=== PATIENT | female | born 1965 | race Caucasian/White ===

== ENCOUNTER 2016-04-23 22:20 | Emergency (ER) | payer BC ==
[~2016-04-23] VITALS: Ht 167.6 cm; Wt 72.6 kg
[~2016-04-23 22:20] MED LIST: ASPI1TAB30 PO; CYCL10TA2 PO; HYDR-2666 PO; IBUP200C PO
[2016-04-23] MEDS ORDERED: IV NORMAL SALINE 1000ML BAG 1,000 ML IV SCH (23:00)
[2016-04-23 23:03] LABS: BASO # 0.1 x10^3/uL (0.0-0.2); BASO % 1 % (0-3); EOS % 2 % (0-3); HEMATOCRIT 42.4 % (36.0-47.0); HEMOGLOBIN 14.5 g/dL (12.0-15.5); LYMPH # 2.5 x10^3/uL (1.0-4.8); LYMPH % 25 % (24-48); MEAN CORPUSCULAR HEMOGLOBIN 30 pg (25-35); MEAN CORPUSCULAR HGB CONC 34 g/dL (31-37); MEAN CORPUSCULAR VOLUME 87 fL (79-100); MONO % 7 % (0-9); NEUT % 64 % (31-73); PLATELET COUNT 306 x10^3/uL (140-400); RED CELL DISTRIBUTION WIDTH 12.6 % (11.5-14.5); WHITE BLOOD COUNT 9.7 x10^3/uL (4.0-11.0)
[2016-04-23 23:07] LABS: PROTHROMBIN TIME PATIENT 12.6 SEC (11.7-14.0)
[2016-04-23 23:10] LABS: CREATININE 1.2 mg/dL (0.6-1.0); GFR 47.6; POTASSIUM 3.5 mmol/L (3.5-5.1)
[2016-04-23] MEDS ORDERED: POTASSIUM CHLORIDE 20 MEQ TABLET.ER. PO ONE (23:45)
--- NOTE | 2016-04-23 23:46 | PHYS DOC ---
Past Medical History Past Medical History: High Cholesterol, Hypertension Additional Past Medical Histor: HERNIATED DISC Past Surgical History: , Hysterectomy Additional Past Surgical Histo: "TUMMY TUCK", KNEE SX AND FOOT SX Alcohol Use: None Drug Use: None Adult General Chief Complaint Chief Complaint: CHEST PAIN HPI HPI Patient is a 50 year old female who presents with diffuse intermittent body cramps including left chest cramps since yesterday; also with fatigue, lightheadedness, and rhinorrhea. She also has nasal congestion. She notes changing her blood pressure medications 2 weeks ago and having lower blood pressure recently as well. She denies fever or chills, dyspnea, hemoptysis, leg swelling, palpitations, diaphoresis, orthopnea, exertional symptoms. Review of Systems Review of Systems Constitutional: Denies fever or chills [] Eyes: Denies change in visual acuity, redness, or eye pain [] HENT: Denies sore throat [] Respiratory: Denies shortness of breath [] Cardiovascular: No additional information not addressed in HPI [] GI: Denies abdominal pain, nausea, vomiting, bloody stools or diarrhea [] : Denies dysuria or hematuria [] Musculoskeletal: Denies back pain or joint pain [] Integument: Denies rash or skin lesions [] Neurologic: Denies headache, focal weakness or sensory changes [] Endocrine: Denies polyuria or polydipsia [] Current Medications Current Medications Current Medications Medications (Trade) Dose Ordered Sig/Ilda Start Time Stop Time Status Last Admin Dose Admin Potassium Chloride (Klor-Con) 40 meq 1X ONCE 04/23/16 23:45 04/23/16 23:46 DC 04/24/16 00:01 40 MEQ Sodium Chloride (Iv Sodium Chloride 0.9% 1000ml Bag) 1,000 ml @ 1,000 mls/hr Q1H 04/23/16 23:00 04/23/16 23:59 DC 04/23/16 23:08 1,000 MLS/HR Allergies Allergies Allergies Coded Allergies Type Severity Reaction Last Updated Verified Penicillins Allergy Intermediate hives 07/31/13 Yes aspirin Allergy Intermediate hives 07/31/13 Yes ibuprofen Allergy Intermediate Rash 08/27/13 Yes pamabrom Allergy Intermediate Rash 08/27/13 Yes Physical Exam Physical Exam Constitutional: Well developed, well nourished, no acute distress, non-toxic appearance. [] HENT: Normocephalic, atraumatic, bilateral external ears normal, oropharynx moist, no oral exudates, nose normal. [] Eyes: PERRLA, EOMI. [] Neck: Normal range of motion, supple. [] Cardiovascular:Heart rate regular rhythm, no murmur [] Lungs & Thorax: Bilateral breath sounds clear to auscultation [] Abdomen: Bowel sounds normal, soft, no tenderness. [] Skin: Warm, dry, no erythema, no rash. [] Back: Normal range of motion. [] Extremities: No tenderness, ROM intact, no edema, no palpable cord. [] Neurologic: Alert and oriented X 3, normal motor function, normal sensory function, no focal deficits noted. [] Psychologic: Affect normal, judgement normal, mood normal. [] Current Patient Data Vital Signs Vital Signs Date Time Temp Pulse Resp B/P Pulse Ox O2 Delivery O2 Flow Rate FiO2 04/24/16 00:01 80 16 108/60 94 Room Air 04/23/16 22:57 98.7 98.7 Lab Values Laboratory Tests Test 04/23/16 22:52 White Blood Count 9.7x10^3/uL (4.0-11.0) Red Blood Count 4.90x10^6/uL (3.50-5.40) Hemoglobin 14.5g/dL (12.0-15.5) Hematocrit 42.4% (36.0-47.0) Mean Corpuscular Volume 87fL (79-100) Mean Corpuscular Hemoglobin 30pg (25-35) Mean Corpuscular Hemoglobin Concent 34g/dL (31-37) Red Cell Distribution Width 12.6% (11.5-14.5) Platelet Count 306x10^3/uL (140-400) Neutrophils (%) (Auto) 64% (31-73) Lymphocytes (%) (Auto) 25% (24-48) Monocytes (%) (Auto) 7% (0-9) Eosinophils (%) (Auto) 2% (0-3) Basophils (%) (Auto) 1% (0-3) Neutrophils # (Auto) 6.2x10^3uL (1.8-7.7) Lymphocytes # (Auto) 2.5x10^3/uL (1.0-4.8) Monocytes # (Auto) 0.7x10^3/uL (0.0-1.1) Eosinophils # (Auto) 0.2x10^3/uL (0.0-0.7) Basophils # (Auto) 0.1x10^3/uL (0.0-0.2) Prothrombin Time 12.6SEC (11.7-14.0) Prothrombin Time INR 1.0 (0.8-1.1) Sodium Level 140mmol/L (136-145) Potassium Level 3.5mmol/L (3.5-5.1) Chloride Level 100mmol/L (98-107) Carbon Dioxide Level 29mmol/L (21-32) Anion Gap 11 (6-14) Blood Urea Nitrogen 27mg/dL (7-20) H Creatinine 1.2mg/dL (0.6-1.0) H Estimated GFR (Cockcroft-Gault) 47.6 Glucose Level 164mg/dL (70-99) H Calcium Level 10.0mg/dL (8.5-10.1) Troponin I Quantitative < 0.017ng/mL (0.000-0.055) AD-Lbv-X-Type Natriuretic Peptide < 5pg/mL (0-124) Laboratory Tests 04/23/16 22:52 Laboratory Tests 04/23/16 22:52 EKG EKG EKG as interpreted by me as normal sinus rhythm, rate 98, no ST-T changes, normal intervals, no ectopy Radiology/Procedures Radiology/Procedures Chest xray as interpreted by me with no acute cardiopulmonary disease process Course & Med Decision Making Course & Med Decision Making Pertinent Labs and Imaging studies reviewed. (See chart for details) I suspect she has a viral illness versus symptoms of well-controlled blood pressure as she states she usually runs very hypertensive (190s SBP) and is now well-controlled. Workup is unremarkable here. Potassium given for possible symptoms related to low normal potassium. Return precautions given. She understands and agrees with plan. Dragon Disclaimer Dragon Disclaimer This electronic medical record was generated, in whole or in part, using a voice recognition dictation system. Departure Departure Impression: Primary Impression: Lightheadedness Additional Impressions: Myalgia Chest pain Disposition: 01 HOME, SELF-CARE Condition: STABLE Referrals: MANOJ HALL MD (PCP) Patient Instructions: Muscle Cramps, Beoc-hb-Wagt Additional Instructions: Take Tylenol as needed for pain. Follow-up with your primary care doctor. Return for any concerns. Problem Qualifiers Additional Impressions: Chest pain Chest pain type: other chest pain Qualified Code: R07.89 - Other chest pain Anderson LIND MD Apr 23, 2016 23:46
[2016-04-24 00:01] VITALS: BP 108/60
--- NOTE | 2016-04-24 06:13 | EKG ---
[facility] [address] [place] [address] Test Date: 2016-04-23 Test Time: 22:34:52 Pat Name: DELONTE DINERO Department: Room: Gender: F Maintenance Apprentice: : 1965 Requested By: Anderson LIND Order Number: [id number] Reading MD: Jesus Nicole Measurements Intervals [place] Rate: 98 P: 34 HI: 152 QRS: 34 QRSD: 78 T: 37 QT: 366 QTc: 469 Interpretive Statements SINUS RHYTHM Electronically Signed On 04-25-2016 15:30:46 PRIMARY THERAPIST by Jesus Nicole
--- NOTE | 2016-04-24 07:14 | RAD ---
EXAM: Chest, 2 views.. HISTORY: Chest pain. COMPARISON: None. FINDINGS: Frontal and lateral views of the chest are obtained. There is no infiltrate, effusion or pneumothorax. The heart is normal in size. IMPRESSION: No acute pulmonary finding.
== END 2016-04-24 00:07 | disposition home or self-care (01) ==
LOC: ER 22:20
DX: R42 Dizziness and giddiness (principal); M79.1 Myalgia; R07.89 Other chest pain; E78.00 Pure hypercholesterolemia, unspecified; I10 Essential (primary) hypertension; Z88.0 Allergy status to penicillin; Z88.8 Allergy status to other drugs, medicaments and biological substances; Z88.6 Allergy status to analgesic agent
CPT/HCPCS: 36415; 71020; 80048; 83880; 84484; 85027; 85610; 93005; 96360; 99285; J7030

== ENCOUNTER 2016-06-15 22:01 | Emergency (ER) | payer BC ==
[~2016-06-15] VITALS: Ht 157.5 cm; Wt 72.6 kg
[2016-06-15 22:47] LABS: BASO # 0.1 x10^3/uL (0.0-0.2); BASO % 1 % (0-3); EOS % 2 % (0-3); HEMATOCRIT 35.8 % (36.0-47.0); HEMOGLOBIN 12.2 g/dL (12.0-15.5); LYMPH # 1.9 x10^3/uL (1.0-4.8); LYMPH % 17 % (24-48); MEAN CORPUSCULAR HEMOGLOBIN 30 pg (25-35); MEAN CORPUSCULAR HGB CONC 34 g/dL (31-37); MEAN CORPUSCULAR VOLUME 87 fL (79-100); MONO % 8 % (0-9); NEUT % 72 % (31-73); PLATELET COUNT 261 x10^3/uL (140-400); RED BLOOD COUNT 4.12 x10^6/uL (3.50-5.40); RED CELL DISTRIBUTION WIDTH 12.7 % (11.5-14.5); WHITE BLOOD COUNT 10.9 x10^3/uL (4.0-11.0)
[2016-06-15] MEDS ORDERED: IV NORMAL SALINE 1000ML BAG 1,000 ML IV ONE (23:00)
[2016-06-15] MEDS ORDERED: CYCLOBENZAPRINE 10 MG TABLET. PO ONE (23:00)
[2016-06-15 23:21] LABS: CALCIUM 9.3 mg/dL (8.5-10.1); GFR 58.7; POTASSIUM 3.4 mmol/L (3.5-5.1)
[2016-06-15 23:27] LABS: ALBUMIN 4.3 g/dL (3.4-5.0); ALBUMIN/GLOBULIN RATIO 1.2 (1.0-1.7); TOTAL BILIRUBIN 0.5 mg/dL (0.2-1.0); TOTAL PROTEIN 7.8 g/dL (6.4-8.2)
[2016-06-16 00:08] VITALS: BP 94/59
[2016-06-16] MEDS ORDERED: CYCL10TA2 PO (00:26)
--- NOTE | 2016-06-16 00:26 | PHYS DOC ---
Past Medical History Past Medical History: High Cholesterol, Hypertension Additional Past Medical Histor: HERNIATED DISC Past Surgical History: , Hysterectomy Additional Past Surgical Histo: "TUMMY TUCK", KNEE SX AND FOOT SX Additional Information: PT DENIES SMOKING CIGARETTES, BUT STATES SHE VAPES Alcohol Use: None Drug Use: None Adult General Chief Complaint Chief Complaint: LOWER EXT PAIN HPI HPI Patient is a 50 year old \\-year-old female who presents to the ER today secondary to muscle cramps. Patient was recently started on a new anti-hyper cholesterol medication. Patient reports that several weeks ago she was discontinued on her prior hyperlipidemic agent secondary to muscle cramps. She reports when she stopped taking that medication she significantly improved in the cramps resolved however over the last day or so she started exercising more cramps or lower extremities. Patient denies any other symptomatology at this time. Patient has any fevers shakes chills nausea vomiting diarrhea chest pain or shortness of breath. Patient's physical exam was unremarkable. Patient had no Homans sign. Patient capillary refill. Patient no evidence of vascular compromise. Patient's workup here was unremarkable. Labs were all within normal limits. I believe that her cramping is likely secondary to the antique hyperlipidemic agent that she is currently taking. I have suggested to the patient that she stopped taking until she speaks her family physician is C they can put her on a different class of medications. Review of Systems Review of Systems Constitutional: Denies fever or chills [] Eyes: Denies change in visual acuity, redness, or eye pain [] HENT: Denies nasal congestion or sore throat [] All other review systems are negative except as documented in the history of present illness portion. Current Medications Current Medications Current Medications Medications (Trade) Dose Ordered Sig/Ilda Start Time Stop Time Status Last Admin Dose Admin Cyclobenzaprine HCl 10 mg 10 mg 1X ONCE 06/15/16 23:00 06/15/16 23:01 DC 06/15/16 22:45 10 MG Sodium Chloride (Iv Sodium Chloride 0.9% 1000ml Bag) 1,000 ml @ 999 mls/hr 1X ONCE 06/15/16 23:00 06/16/16 00:00 DC 06/15/16 22:46 999 MLS/HR Allergies Allergies Allergies Coded Allergies Type Severity Reaction Last Updated Verified Penicillins Allergy Intermediate hives 07/31/13 Yes aspirin Allergy Intermediate hives 07/31/13 Yes ibuprofen Allergy Intermediate Rash 08/27/13 Yes pamabrom Allergy Intermediate Rash 08/27/13 Yes Physical Exam Physical Exam Constitutional: Well developed, well nourished, no acute distress, non-toxic appearance. [] HENT: Normocephalic, atraumatic, bilateral external ears normal, oropharynx moist, no oral exudates, nose normal. [] Eyes: PERRLA, EOMI, conjunctiva normal, no discharge. [] Neck: Normal range of motion, no tenderness, supple, no stridor. [] Cardiovascular:Heart rate regular rhythm, no murmur [] Lungs & Thorax: Bilateral breath sounds clear to auscultation [] Abdomen: Bowel sounds normal, soft, no tenderness, no masses, no pulsatile masses. [] Skin: Warm, dry, no erythema, no rash. [] Back: No tenderness, no CVA tenderness. [] Extremities: No tenderness, no cyanosis, no clubbing, ROM intact, no edema. [] Neurologic: Alert and oriented X 3, normal motor function, normal sensory function, no focal deficits noted. [] Psychologic: Affect normal, judgement normal, mood normal. [] Current Patient Data Vital Signs Vital Signs Date Time Temp Pulse Resp B/P Pulse Ox O2 Delivery O2 Flow Rate FiO2 06/16/16 00:08 69 20 94/59 95 Room Air 06/15/16 22:15 97.4 97.4 Lab Values Laboratory Tests Test 06/15/16 22:35 06/15/16 23:00 White Blood Count 10.9x10^3/uL (4.0-11.0) Red Blood Count 4.12x10^6/uL (3.50-5.40) Hemoglobin 12.2g/dL (12.0-15.5) Hematocrit 35.8% (36.0-47.0) L Mean Corpuscular Volume 87fL (79-100) Mean Corpuscular Hemoglobin 30pg (25-35) Mean Corpuscular Hemoglobin Concent 34g/dL (31-37) Red Cell Distribution Width 12.7% (11.5-14.5) Platelet Count 261x10^3/uL (140-400) Neutrophils (%) (Auto) 72% (31-73) Lymphocytes (%) (Auto) 17% (24-48) L Monocytes (%) (Auto) 8% (0-9) Eosinophils (%) (Auto) 2% (0-3) Basophils (%) (Auto) 1% (0-3) Neutrophils # (Auto) 7.8x10^3uL (1.8-7.7) H Lymphocytes # (Auto) 1.9x10^3/uL (1.0-4.8) Monocytes # (Auto) 0.8x10^3/uL (0.0-1.1) Eosinophils # (Auto) 0.2x10^3/uL (0.0-0.7) Basophils # (Auto) 0.1x10^3/uL (0.0-0.2) Sodium Level 141mmol/L (136-145) Potassium Level 3.4mmol/L (3.5-5.1) L Chloride Level 103mmol/L (98-107) Carbon Dioxide Level 27mmol/L (21-32) Anion Gap 11 (6-14) Blood Urea Nitrogen 25mg/dL (7-20) H Creatinine 1.0mg/dL (0.6-1.0) Estimated GFR (Cockcroft-Gault) 58.7 BUN/Creatinine Ratio 25 (6-20) H Glucose Level 107mg/dL (70-99) H Calcium Level 9.3mg/dL (8.5-10.1) Total Bilirubin 0.5mg/dL (0.2-1.0) Aspartate Amino Transferase (AST) 21U/L (15-37) Alanine Aminotransferase (ALT) 23U/L (14-59) Alkaline Phosphatase 78U/L (46-116) Total Protein 7.8g/dL (6.4-8.2) Albumin 4.3g/dL (3.4-5.0) Albumin/Globulin Ratio 1.2 (1.0-1.7) Laboratory Tests 06/15/16 22:35 Laboratory Tests 06/15/16 23:00 EKG EKG [] Radiology/Procedures Radiology/Procedures [] Course & Med Decision Making Course & Med Decision Making Pertinent Labs and Imaging studies reviewed. (See chart for details) [] Dragon Disclaimer Dragon Disclaimer This electronic medical record was generated, in whole or in part, using a voice recognition dictation system. Departure Departure Impression: Primary Impression: Muscle cramps Additional Impression: Drug reaction Disposition: HOME, SELF-CARE Condition: IMPROVED Referrals: MANOJ HALL MD (PCP) Patient Instructions: Muscle Cramps Additional Instructions: Hold off taking your cholesterol medicines until you talk to your doctor. Scripts Cyclobenzaprine Hcl 10 Mg [id number] Mg PO TID PRN MUSCLE PAIN #20 TAB Prov:MIKE ISBELL MD 06/16/16 Problem Qualifiers MIKE ISBELL MD Jun 16, 2016 00:26
== END 2016-06-16 00:35 | disposition home or self-care (01) ==
LOC: ER 22:01
DX: R25.2 Cramp and spasm (principal); T46.6X5A Adverse effect of antihyperlipidemic and antiarteriosclerotic drugs, initial encounter; E78.00 Pure hypercholesterolemia, unspecified; I10 Essential (primary) hypertension; F17.290 Nicotine dependence, other tobacco product, uncomplicated; Z90.710 Acquired absence of both cervix and uterus; Z88.8 Allergy status to other drugs, medicaments and biological substances; Z88.6 Allergy status to analgesic agent; Z88.0 Allergy status to penicillin; Y92.89 Other specified places as the place of occurrence of the external cause
CPT/HCPCS: 36415; 80053; 85027; 96360; 99284; J7030

== ENCOUNTER → 2017-03-01 | Outpatient (CLI) | payer BC ==
[~2017-03-01] MED LIST changes: -ASPI1TAB30 PO; +ASPI1TAB31 PO; -HYDR-2666 PO; +HYDR-2758 PO; +IOHEXOL 240 MG/ML 50ML VIAL. PO ONE
--- NOTE | 2017-03-01 15:40 | KCIC ---
PQRS Compliance Statement: One or more of the following individualized dose reduction techniques were utilized for this examination: 1. Automated exposure control 2. Adjustment of the mA and/or kV according to patient size 3. Use of iterative reconstruction technique CT ABDOMEN PELVIS WO CONTRAST Clinical Indication: Right lower quadrant pain x1 month. Patient returned from [facility] 1 [facility] ago. Diarrhea. Comparison: None. Technique: Helical CT imaging of the abdomen and pelvis is performed without IV contrast. Oral contrast is given. Findings: Lung bases clear. Cardiac size normal. Liver, gallbladder, spleen, pancreas, adrenal glands, abdominal aorta caliber, and kidneys are normal. Stomach unremarkable. There is small fat-containing umbilical hernia. There is no dilated small bowel. There is no colon wall thickening. The appendix is normal. No abdominal adenopathy or free fluid. Urinary bladder is normal. Uterus is absent. No pelvic free fluid. No acute bone abnormality. IMPRESSION: No acute abdominal or pelvic abnormality. Electronically signed by: Brayan Lindsey MD (03/01/2017 3:36 PM) [id number]
== END | disposition home or self-care (01) ==
LOC: KCIC CT 14:17
PROVIDERS: ATTEND Family Medicine
DX: K37 Unspecified appendicitis (principal)
CPT/HCPCS: 74176; Q9966

== ENCOUNTER 2017-05-06 10:37 | Inpatient (IN) | payer BC ==
[2017-05-06 11:19] LABS: ADD MAN DIFF? NO
[2017-05-06 11:21] LABS: BASO # 0.1 x10^3/uL (0.0-0.2); BASO % 1 % (0-3); EOS # 0.2 x10^3/uL (0.0-0.7); EOS % 2 % (0-3); HEMATOCRIT 41.2 % (36.0-47.0); HEMOGLOBIN 14.3 g/dL (12.0-15.5); LYMPH # 2.3 x10^3/uL (1.0-4.8); LYMPH % 31 % (24-48); MEAN CORPUSCULAR HEMOGLOBIN 30 pg (25-35); MEAN CORPUSCULAR HGB CONC 35 g/dL (31-37); MEAN CORPUSCULAR VOLUME 87 fL (79-100); MONO # 0.6 x10^3/uL (0.0-1.1); MONO % 8 % (0-9); NEUT # 4.4 x10^3uL (1.8-7.7); NEUT % 58 % (31-73); PLATELET COUNT 323 x10^3/uL (140-400); RED BLOOD COUNT 4.71 x10^6/uL (3.50-5.40); RED CELL DISTRIBUTION WIDTH 12.9 % (11.5-14.5); WHITE BLOOD COUNT 7.6 x10^3/uL (4.0-11.0)
[2017-05-06 11:26] LABS: BILIRUBIN,URINE NEGATIVE (NEG); CLARITY,URINE CLEAR; COLOR,URINE YELLOW; GLUCOSE,URINE NEGATIVE (NEG); NITRITE,URINE NEGATIVE (NEG); PROTEIN,URINE NEGATIVE (NEG-TRACE); UROBILINOGEN,URINE 0.2 mg/dL (0.2 mg/dL)
[2017-05-06 11:32] LABS: ANION GAP 12 (6-14); BLOOD UREA NITROGEN 10 mg/dL (7-20); BUN/CREATININE RATIO 11 (6-20); CARBON DIOXIDE 25 mmol/L (21-32); CHLORIDE 105 mmol/L (98-107); CREATININE 0.9 mg/dL (0.6-1.0); GLUCOSE 108 mg/dL (70-99); POTASSIUM 3.5 mmol/L (3.5-5.1); SODIUM 142 mmol/L (136-145)
[2017-05-06 11:33] LABS: PARTIAL THROMBOPLASTIN TIME 28 SEC (24-38); PROTHROMBIN TIME PATIENT 12.5 SEC (11.7-14.0)
[2017-05-06 11:42] LABS: ALBUMIN 4.3 g/dL (3.4-5.0); ALBUMIN/GLOBULIN RATIO 1.1 (1.0-1.7); ALK PHOS 91 U/L (46-116); ALT (SGPT) 25 U/L (14-59); AST (SGOT) 18 U/L (15-37); LIPASE 128 U/L (73-393); MAGNESIUM 1.8 mg/dL (1.8-2.4); TOTAL BILIRUBIN 0.2 mg/dL (0.2-1.0); TOTAL PROTEIN 8.2 g/dL (6.4-8.2)
[2017-05-06 11:45] LABS: THYROID STIM HORMONE (TSH) 1.025 uIU/mL (0.358-3.74)
[2017-05-06 11:46] LABS: TROPONINI < 0.017 ng/mL (0.000-0.055)
[2017-05-06] MEDS: ONDANSETRON PF 4 MG/2 ML VIAL. IV (11:47)
[2017-05-06] MEDS: fentaNYL PF VIAL 100 MCG/2 ML VIAL IV ×2 (11:47→14:30)
[2017-05-06 11:48] LABS: NT-PRO BNP 16 pg/mL (0-124)
[2017-05-06 11:49] LABS: D-DIMER < 0.27 ug/mlFEU (0.00-0.50)
[2017-05-06 11:54] LABS: BACTERIA,URINE 0 /HPF (0-FEW); RBC,URINE 0 /HPF (0-2); SQUAMOUS EPITHELIAL CELL,UR MOD /LPF
[2017-05-06] MEDS ORDERED: ONDANSETRON PF 4 MG/2 ML VIAL. IV (13:00)
[2017-05-06] MEDS: LOSARTAN POTASSIUM 50 MG TABLET. PO (16:00)
[2017-05-06] MEDS: HYDROcodone/APAP 5/325MG 1 TAB TABLET PO (17:44)
[2017-05-06] MEDS: FLU VACC QS2017-18 (36MOS+)/PF 0.5 ML SYRINGE. VAX IM (20:31)
[2017-05-07] MEDS: HYDROcodone/APAP 5/325MG 1 TAB TABLET PO ×4 (00:06→17:53)
[2017-05-07] MEDS: LOSARTAN POTASSIUM 50 MG TABLET. PO (07:33)
[2017-05-07 08:28] LABS: ADD MAN DIFF? NO
[2017-05-07 08:35] LABS: BASO # 0.1 x10^3/uL (0.0-0.2); BASO % 1 % (0-3); EOS # 0.2 x10^3/uL (0.0-0.7); EOS % 2 % (0-3); HEMATOCRIT 39.5 % (36.0-47.0); HEMOGLOBIN 13.3 g/dL (12.0-15.5); LYMPH % 23 % (24-48); MEAN CORPUSCULAR HEMOGLOBIN 29 pg (25-35); MEAN CORPUSCULAR HGB CONC 34 g/dL (31-37); MEAN CORPUSCULAR VOLUME 87 fL (79-100); MONO # 0.5 x10^3/uL (0.0-1.1); MONO % 5 % (0-9); NEUT # 5.9 x10^3uL (1.8-7.7); NEUT % 69 % (31-73); PLATELET COUNT 297 x10^3/uL (140-400); RED BLOOD COUNT 4.56 x10^6/uL (3.50-5.40); RED CELL DISTRIBUTION WIDTH 13.1 % (11.5-14.5); WHITE BLOOD COUNT 8.6 x10^3/uL (4.0-11.0)
[2017-05-07 08:57] LABS: ANION GAP 11 (6-14); BLOOD UREA NITROGEN 7 mg/dL (7-20); CARBON DIOXIDE 25 mmol/L (21-32); CHLORIDE 106 mmol/L (98-107); GFR 58.5; GLUCOSE 99 mg/dL (70-99); POTASSIUM 3.6 mmol/L (3.5-5.1); SODIUM 142 mmol/L (136-145)
[2017-05-07] MEDS: POLYETHYLENE GLYCOL 3350 17 GM PACKET. PO (09:03)
[2017-05-07 10:27] LABS: SEDIMENTATION RATE 9 (0-25)
[2017-05-07] MEDS: CYCLOBENZAPRINE 10 MG TABLET. PO (15:07)
[2017-05-08] MEDS: HYDROcodone/APAP 5/325MG 1 TAB TABLET PO (02:45)
[2017-05-08] MEDS: ASA/APAP/CAFFEINE 250/250/65MG TABLET. PO (04:12)
[2017-05-08] MEDS: LOSARTAN POTASSIUM 50 MG TABLET. PO (09:00)
[2017-05-08] MEDS: POLYETHYLENE GLYCOL 3350 17 GM PACKET. PO (09:00)
== END 2017-05-08 10:10 | disposition home or self-care (01) | DRG 392 ==
LOC: ER 10:37 → 5 NORTH 12:32
DX: R10.12 Left upper quadrant pain (principal); G89.29 Other chronic pain; I10 Essential (primary) hypertension; K59.09 Other constipation; R07.81 Pleurodynia; M51.36 Other intervertebral disc degeneration, lumbar region; R09.1 Pleurisy; Z90.710 Acquired absence of both cervix and uterus; Z88.0 Allergy status to penicillin; Z88.8 Allergy status to other drugs, medicaments and biological substances
CPT/HCPCS: 36415; 71045; 72146; 72148; 73502; 80048; 80053; 81001; 83690; 83735; 83880; 84443; 84484; 85025; 85379; 85610; 85651; 85730; 90686; 93005; 96374; 96375; 99285-25; J2405; J3010

== ENCOUNTER → 2017-08-08 | Outpatient (CLI) | payer BC | END | disposition home or self-care (01) | LOC: RT 18:15 | DX: G47.33 Obstructive sleep apnea (adult) (pediatric) (principal); E78.00 Pure hypercholesterolemia, unspecified | CPT/HCPCS: 95810 ==

== ENCOUNTER → 2018-01-29 | Outpatient (CLI) | payer BC ==
[2017-05-08 09:00] VITALS: BP 121/77
[~2018-01-29] MED LIST changes: -IOHEXOL 240 MG/ML 50ML VIAL. PO ONE; +LINA290C PO; +LOSA50TA7 PO; +SENN1TAB91 PO
--- NOTE | 2018-01-29 15:41 | KCIC ---
Bilateral digital screening mammograms: Reason for examination: Routine screening. Comparison is made to previous study dated 03/06/2014. Interpretation was made with the benefit of CAD. The skin and nipples show no abnormalities. No abnormal lymph nodes are seen. The breast parenchyma is predominantly fatty. (Breast density: Category A.) There is a small nodule consistent with an intramammary lymph node at the 9:00 B position of the right breast which is unchanged. There are no new dominant masses, suspicious calcifications or architectural distortions. A few benign calcifications are again seen. Impression: No evidence of malignancy. Recommend routine screening. BI-RADS Category 2: Benign. "Our facility is accredited by the [employer] Mammography Program." This patient's information has been entered into a reminder system for the patient to be notified with the results of her examination and a target date for the next mammogram. Electronically signed by: Carmen Douglass MD (01/29/2018 3:38 PM) [id number]
== END | disposition home or self-care (01) ==
LOC: KCIC MAMMO 14:35
PROVIDERS: ATTEND Family Medicine
DX: Z12.31 Encounter for screening mammogram for malignant neoplasm of breast (principal)
CPT/HCPCS: 77067

== ENCOUNTER → 2018-02-12 | Outpatient (CLI) | payer BC ==
[2017-05-08 09:00] VITALS: BP 121/77
--- NOTE | 2018-02-12 14:14 | KCIC ---
MRI Thoracic Spine without contrast History: Thoracic back pain, lumbago with right sciatica, chronic neck and middle back pain Technique: Multiplanar, multi sequential noncontrast MR imaging was performed of the thoracic spine. Contrast: None Comparison: May 07, 2017 Findings: Thoracic vertebral body stature and AP alignment are within normal limits. Thoracic cord caliber is within normal limits without significant focal signal abnormality. There is no significant marrow edema. There is multilevel overall mild degenerative disc disease greatest T2-3 through T9-T10. There is now shallow protrusion in the left lateral recess T6-7, also small protrusion in the left lateral recess T7-8 fairly similar. There is no significant thoracic spinal stenosis at any level. There is small cystic focus in the left T10-11 neural foramen more likely due to small nerve root sleeve cyst. There is mild narrowing of the posterior left T6-7 neural foramen by facet, also mild posterior narrowing on the right at T9-10. As seen on the localizer, there is cervical degenerative disc disease greatest C5-C6, bulge or protrusion at this level resulting in suspected [id number] spinal stenosis. There is also probable lesser degree of mild spinal stenosis C6-7. Impression: 1. There are small protrusions in the left lateral recesses at T6-7 and T7-8 without significant spinal stenosis. There is multilevel mild thoracic degenerative disc disease. 2. As seen on the localizer, there is cervical degenerative disc disease greatest C5-6, suspected evzj-ty-ybhmosah spinal stenosis at this level, to lesser degree at C6-7. Electronically signed by: Andrew Williamson MD (02/12/2018 2:11 PM) [id number]
--- NOTE | 2018-02-12 14:18 | KCIC ---
MRI Lumbar Spine without contrast History: Lumbago with right sciatica, low back pain Technique: Multiplanar, multi sequential noncontrast MR imaging was performed of the lumbar spine. Contrast: None Comparison: May 07, 2017 Findings: Lumbar vertebral body stature and AP alignment are preserved. Conus terminates at of the superior aspect of L2. There is no significant marrow edema. There is mild degenerative disc disease at L5-S1. L3-L4: Spinal canal and neural foramina are adequate. L4-L5: Neural foramina and spinal canal are adequate. L5-S1: There is again bilateral facet degenerative change. There is again minimal posterior narrowing of the right neural foramen by facet. Spinal canal is overall adequate. There is negligible posterior central protrusion as seen previously without neural impingement. Impression: 1. There is no significant lumbar spinal stenosis or neural foramina compromise. Electronically signed by: Andrew Williamson MD (02/12/2018 2:15 PM) [id number]
== END | disposition home or self-care (01) ==
LOC: KCIC MRI 12:36
PROVIDERS: ATTEND Family Medicine
DX: M51.34 Other intervertebral disc degeneration, thoracic region (principal); M50.322 Other cervical disc degeneration at C5-C6 level; M48.04 Spinal stenosis, thoracic region; M48.07 Spinal stenosis, lumbosacral region
CPT/HCPCS: 72146; 72148

== ENCOUNTER → 2018-03-04 | Outpatient (CLI) | payer BC ==
[2017-05-08 09:00] VITALS: BP 121/77
[~2018-03-04] MED LIST changes: +ACET325T9 PO; +IOHEXOL 180 MG/ML 10 ML VIAL. ONE; +OMEP20CA9 PO; +methylPREDNISolone ACETATE 40 MG/ML VIAL. ONE; +methylPREDNISolone ACETATE 80 MG/ML VIAL. ONE
--- NOTE | 2018-03-04 16:34 | PAIN ---
DATE OF SERVICE: 03/04/2018 PROGRESS NOTE FOR PAIN CLINIC DIAGNOSES: 1. Cervical radiculopathy with cervical degenerative disk disease. 2. Thoracic radiculopathy with thoracic degenerative disk disease. HISTORY OF PRESENT ILLNESS: The patient is a 52-year-old female who returns for followup, last seen about 1-1/2 years ago. The patient had a thoracic epidural steroid injection at that time with good results. She reports the pain now returning more in the base of the neck and shoulder, slightly more on the left than the right that it has been in the past. The patient has had this for many years, about 8 years ago, had similar pain that was treated with epidural steroid injections and did very well with this as well in the neck and shoulders. The patient reports the mid back, upper back and low back is also painful, but primarily in the base of the neck and shoulders, radiating to the left shoulder with tingling and numbness in her left hand at times, but not constantly. The patient reports it is throbbing, aching, cramping, burning, tingling again in to the left arm and hand as well as the base of the neck and shoulders, in the right shoulder as well posteriorly. The patient reports no loss of motor function, no deficits, but significantly increase with repetitive motion of the left upper extremity, especially working, reaching up over her head and repetitive motions. The patient reports no loss of motor function, but some occasional weakness, but has not been dropping items with either of the upper extremities. The patient rates her disability from 0-10, 10 being the worst, is at 9 with family home responsibilities and recreation and occupation, 7 with social activity, 6 with sexual behavior and life support activities, and 4 with self-care activities. The patient has been taking hydrocodone as well as Flexeril, which both do help the pain, but not 100%. PAST MEDICAL HISTORY: Significant for hypertension, gastroesophageal reflux, cigarette and vapor smoking, quit about 3 years ago with regular cigarettes and has been using vapor since then, history of arthritis. PREVIOUS SURGERY: Include tubal ligation, left knee surgery, right foot surgery, 4 previous C-sections, abdominoplasty and total abdominal hysterectomy. CURRENT MEDICATIONS: Updated and include Flexeril, losartan, omeprazole, [place]. ALLERGIES: THE PATIENT IS ALLERGIC TO PENICILLIN, ASPIRIN, IBUPROFEN. REVIEW OF SYSTEMS: The patient's review of systems is positive for those items mentioned in history of present illness. All systems reviewed and otherwise negative. It is complete, full and well documented on the patient's chart. PHYSICAL EXAMINATION: VITAL SIGNS: The patient's blood pressure 150/104, pulse 87, respirations 16, temperature 97.9 degrees Fahrenheit, height is 5 feet 2 inches, weight is 173 pounds. GENERAL: The patient is awake, alert, oriented, appropriate, very pleasant demeanor. HEENT: Head shows normocephalic, atraumatic. Extraocular muscles are intact and symmetrical. Oral cavity: Mucous membranes moist and pink. Dentition is intact. NECK: Shows anterior throat supple without palpable lymphadenopathy noted. Swallow reflex symmetrical. CHEST: Shows normal with inspection. Breath sounds are clear to auscultation bilaterally. HEART: Shows S1, S2 clear. No murmurs auscultated. ABDOMEN: Soft, nontender, nondistended. No palpable organomegaly is noted. No rebound or guarding demonstrated. BACK: Shows spine grossly in the midline, normal-appearing cervical lordotic curvature. Thoracic kyphotic curve is slightly exaggerated and some slightly flattened lumbar lordotic curvature. Cervical paraspinous muscle shows symmetrical on inspection, on palpation shows some zpoy-vl-dluoulwf tenderness with palpation bilaterally, but only diffusely in the low cervical paraspinous musculature, more on the left than the right, between the superior and medial trapezius on the left as well and mildly in the trapezius superiorly on the right, but without radiation. The patient has good rotational motion of cervical spine, both laterally greater than 45 degrees right and left as well as extension and full forward flexion without significant increase in pain. EXTREMITIES: The patient's upper extremities show deep tendon reflexes at 2+ in the biceps, triceps tendons. Motor exam is strong with infant and toddler teacher strength rated 5/5 as is bicep and tricep flexion approximately 4-5, but again symmetrical and equal bilaterally. Shoulder shrug is strong and intact without loss of strength on resistance, but pain reported in the base of the shoulder and the neck on the left side greater than the right with abduction of shoulder to 90 degrees. This is also true with pain with resistance, but without loss of strength on resistance on the left side only in the base of the neck and trapezius. PLAN: Options were discussed with the patient. The patient's old chart was reviewed as her current medication regimen updated. Current review of systems updated today as well. We will proceed with a cervical epidural steroid injection today with fluoroscopic guidance. Risks were again discussed including, but not limited to bleeding, infection, possibility of epidural hematoma, subsequent neurological compromise, dural puncture, headaches, spinal cord and/or nerve damage, side effects of steroid medication and poor results regarding pain control. The patient understands and wished to proceed. The patient to return to clinic in approximately 2 weeks for followup, was counseled on return appointment, activity level and side effects to be aware of. DIAGNOSES: Cervical radiculopathy with cervical degenerative disk disease. PROCEDURE: Cervical epidural steroid injection, translaminar approach C6-C7 level using C-arm fluoroscopic guidance under sterile prep and drape using local anesthetic. MEDICATION INJECTED: A total of 120 mg Depo-Medrol plus 10 mL of preservative-free normal saline and 2 mL of Isovue for contrast. CONDITION AT DISCHARGE: Stable. The patient tolerated the procedure well, had no complications. LINNETTE WILKERSON MD DR: JANETTE/shy JOB#: [id number] / [id number] Adolfo Figueroa MD
== END | disposition home or self-care (01) ==
LOC: PNCL 12:24
PROVIDERS: ATTEND Anesthesiology
DX: M50.123 Cervical disc disorder at C6-C7 level with radiculopathy (principal); M51.14 Intervertebral disc disorders with radiculopathy, thoracic region; I10 Essential (primary) hypertension; K21.9 Gastro-esophageal reflux disease without esophagitis; Z87.891 Personal history of nicotine dependence; M19.90 Unspecified osteoarthritis, unspecified site; Z98.890 Other specified postprocedural states; Z90.710 Acquired absence of both cervix and uterus; Z98.51 Tubal ligation status; Z79.899 Other long term (current) drug therapy; Z88.0 Allergy status to penicillin; Z88.6 Allergy status to analgesic agent; Z88.8 Allergy status to other drugs, medicaments and biological substances
CPT/HCPCS: 62321; J1030; J1040; Q9965

== ENCOUNTER → 2018-04-11 | Outpatient (CLI) | payer BC ==
[2017-05-08 09:00] VITALS: BP 121/77
[~2018-04-11] MED LIST changes: -HYDR-2758 PO; +HYDR-2761 PO; -LINA290C PO; +LINZESS290 MCG PO; +LOSA-73 PO; -LOSA50TA7 PO
--- NOTE | 2018-04-13 04:00 | PAIN ---
DATE OF SERVICE: 04/12/2018 DIAGNOSES: 1. Cervical radiculopathy with cervical degenerative disk disease. 2. Thoracic radiculopathy with thoracic degenerative disk disease. HISTORY OF PRESENT ILLNESS: The patient is a 52-year-old female who returns for followup status post cervical epidural steroid injection x 1. The patient reports about 75% improvement after the first injection. The pain in the upper back almost completely gone. Pain is still in the base of the neck and some into the shoulders as well, more on the left than the right. The patient reports no new motor or sensory deficits, no new changes, but still significant pain, rates it as a 6 on a scale of 10 at its worst, 5 on average, 2 at its least and is a 2 today. The patient reports she has been sleeping better at night, increased her mobility, greater ease and comfort. Describes the pain as aching and tight into the base of the left shoulder and some in the arm radiating as well as but much improved. PHYSICAL EXAMINATION: VITAL SIGNS: Today, the patient's blood pressure 130/76, pulse 83, respirations 16, temperature is 98.1 degrees Fahrenheit. GENERAL: The patient is awake, alert, oriented, appropriate, very pleasant demeanor. HEENT: Shows normocephalic, atraumatic. Extraocular movements intact and symmetrical. Oral cavity: Mucous membranes are moist and pink. Dentition is intact. NECK: Shows anterior throat supple without palpable lymphadenopathy noted. Swallow reflex is symmetrical. CHEST: Shows normal on inspection. Breath sounds clear to auscultation bilaterally. HEART: Shows S1, S2 clear. No murmurs auscultated. ABDOMEN: Soft, nontender, nondistended. No palpable organomegaly is noted. No rebound or guarding demonstrated. BACK: Shows spine grossly in the midline. Cervical lordotic curvature as well as thoracic kyphotic curvature are normal in appearance as is lumbar lordotic curvature. Cervical paraspinous musculature shows symmetrical on inspection and palpation shows some moderate tenderness diffusely, more on the left than the right in the inferior aspect of the cervical paraspinous musculature and the lateral trapezius, but without atrophy or hypertrophy, but she has good rotational motion of cervical spine, both laterally as well as extension and flexion without significant pain reported. EXTREMITIES: Upper extremities showed deep tendon reflexes 2+ in the biceps and triceps tendons and are equal bilaterally. Motor exam is strong with 5/5 heating and cooling technician strength and 4/5 bicep and tricep flexion but symmetrical bilaterally. Peripheral pulses are 2+ radial distribution. No peripheral edema is noted. Options were discussed with the patient. The patient's old chart was reviewed as her current medication regimen and updated. Current review of systems is updated today as well. We will proceed with a second in the series of cervical epidural steroid injection today with fluoroscopic guidance. Risks were again discussed including, but not limited to bleeding, infection, possibility of epidural hematoma, subsequent neurologic compromise, dural puncture, headaches, spinal cord and/or nerve damage, side effects of steroid medication and poor results regarding pain control. The patient understands and wished to proceed. She is to return to the clinic in approximately 2 weeks for followup. She was counseled to return appointment, activity level and side effects to be aware of. DIAGNOSES: Cervical radiculopathy with cervical degenerative disk disease. PROCEDURE: Cervical epidural steroid injection, translaminar approach at C6-C7 level using C-arm fluoroscopic guidance under sterile prep and drape using local anesthetic. MEDICATIONS INJECTED: A total of 120 mg of Depo-Medrol plus 5 mL of preservative-free normal saline and 2 mL of Isovue for contrast. CONDITION AT DISCHARGE: Stable. The patient tolerated procedure well, had no complications. LINNETTE WILKERSON MD DR: JANETTE/shy JOB#: [id number] / [id number]
== END | disposition home or self-care (01) ==
LOC: PNCL 15:02
PROVIDERS: ATTEND Anesthesiology
DX: M50.123 Cervical disc disorder at C6-C7 level with radiculopathy (principal); M51.14 Intervertebral disc disorders with radiculopathy, thoracic region; Z88.0 Allergy status to penicillin; Z88.6 Allergy status to analgesic agent; Z88.8 Allergy status to other drugs, medicaments and biological substances
CPT/HCPCS: 62321; J1030; J1040; Q9965; 62323

== ENCOUNTER → 2019-02-18 | Outpatient (CLI) | payer BC ==
[2017-05-08 09:00] VITALS: BP 121/77
[~2019-02-18] MED LIST changes: -IOHEXOL 180 MG/ML 10 ML VIAL. ONE; +OMEP20CA10 PO; -OMEP20CA9 PO; -methylPREDNISolone ACETATE 40 MG/ML VIAL. ONE; -methylPREDNISolone ACETATE 80 MG/ML VIAL. ONE
--- NOTE | 2019-02-18 14:23 | KCIC ---
EXAM: CHEST 2 VIEWS. HISTORY: Shortness of breath. COMPARISON: 05/06/2017. FINDINGS: Frontal and lateral views of the chest are obtained. There are no confluent infiltrates. A triangular opacity in the right cardiophrenic angle is stable chronically and likely represents an epicardial fat pad. There is no pneumothorax or pleural effusion. The heart is not enlarged. There are atherosclerotic calcifications of the aorta. IMPRESSION: 1. No confluent infiltrates. Electronically signed by: Steven Abraham MD (02/18/2019 2:20 PM) [facility]
== END | disposition home or self-care (01) ==
LOC: KCIC 10:23
PROVIDERS: ATTEND Family Medicine
DX: R06.02 Shortness of breath (principal)
CPT/HCPCS: 71046

== ENCOUNTER → 2019-12-10 | Outpatient (CLI) | payer BC ==
[2017-05-08 09:00] VITALS: BP 121/77
[~2019-12-10] MED LIST changes: -OMEP20CA10 PO; +OMEP20CA16 PO
--- NOTE | 2019-12-10 16:55 | KCIC ---
Bilateral digital screening mammograms: Reason for examination: Routine screening. Comparison is made to previous studies dated 01/29/2018 and 03/06/2014. Interpretation was made with the benefit of CAD. The skin and nipples show no abnormalities. No abnormal lymph nodes are seen. The breast parenchyma is predominantly fatty. (Breast density: Category A.) There continues to be a small nodule consistent with an intramammary lymph node at the 9:00 position of the right breast which is stable. There are no new dominant masses, suspicious calcifications or architectural distortions. A few benign calcifications are again seen. Impression: No evidence of malignancy. Recommend routine screening. BI-RADS Category 2: Benign. "Our facility is accredited by the [employer] Mammography Program." This patient's information has been entered into a reminder system for the patient to be notified with the results of her examination and a target date for the next mammogram. Electronically signed by: Carmen Douglass MD (12/10/2019 4:52 PM) [id number]
== END ==
LOC: KCIC MAMMO 14:35
PROVIDERS: ATTEND Family Medicine
DX: Z12.31 Encounter for screening mammogram for malignant neoplasm of breast (principal)
CPT/HCPCS: 77067

== ENCOUNTER → 2020-09-17 | Outpatient (CLI) | payer BC ==
[2017-05-08 09:00] VITALS: BP 121/77
[~2020-09-17] MED LIST changes: +IOHEXOL 180 MG/ML 10 ML VIAL. ONE; +methylPREDNISolone ACETATE 40 MG/ML VIAL. ONE; +methylPREDNISolone ACETATE 80 MG/ML VIAL. ONE
--- NOTE | 2020-09-17 10:37 | PDOC ---
Progress Note - Pain Clinic Date of Service: DOS: DATE: 09/17/20 TIME: 10:33 Diagnosis: Dx: Cervical radiculopathy with cervical degenerative disc disease Thoracic radiculopathy with right degenerative disc disease Lumbar radiculopathy with lumbosacral degenerative disc disease History or Present Illness: HPI: 54-year-old female returns for follow-up status post cervical epidural steroid injections x2 last seen April 11, 2018. Patient reports that she did very well about 95% improvement first about 2 years pain is returned now base the neck and left shoulder left upper extremity also in the mid upper back also low back and left hip patient has had a new MRI scan showing degenerative changes with a central disc protrusion at L5S1. Patient rates her pain is most severe low in the base the neck and left shoulder left arm and upper back patient rates it as a 9 on scale 10 at all times worst average and least is a 9 today patient scribes aching sharp tight burning shooting constant can be severe unbearable in intensity into the left shoulder and arm deltoid triceps and into the forearm on the posterior aspect most times. Patient reports no loss of motor function patient reports its beginning to awaken her from sleep over the past few months as well about every 5 hours or so. Patient reports no new motor or sensory deficits no new bowel or bladder incontinence or other complaints. Physical Exam: VS: Blood pressure is 116/81 pulse 80 respirations 18 temperature 97.9 F height 5 feet 2 inches weight is 166 pounds PE: PHYSICAL EXAMINATION: GENERAL: The patient is awake, alert, oriented, appropriate, very pleasant demeanor HEENT: Shows normocephalic, atraumatic. Extraocular movements are intact and symmetrical. Oral cavity: Mucous membranes moist and pink. Dentition is intact. NECK: Shows anterior throat supple without palpable lymphadenopathy noted. Swallow reflex symmetrical. CHEST: Shows normal on inspection. Breath sounds are clear bilaterally, no rales rhonchi wheezes auscultated. HEART: Shows S1, S2 clear. No murmurs auscultated. ABDOMEN: Soft, nontender, nondistended, obese. No palpable organomegaly is noted. BACK: Shows spine grossly in the midline. Normal-appearing cervical lordotic curvature. Cervical paraspinous muscles show symmetrical with inspection, on palpation some moderate tenderness diffusely in the inferior aspect the cervical paraspinous muscle especially on the left compared to the right without atrophy or hypertrophy, patient shows good rotation motion cervical spine both laterally as well as extension flexion without significant limitation or increase in pain. There is slightly increased thoracic kyphosis, some minor flattening of the lumbar lordotic curvature. Lumbar paraspinous muscles show symmetrical on inspection, on palpation shows some moderate tenderness diffusely throughout the upper, middle and lower distribution of the paraspinous muscles without specific trigger points, without radiation of pain. The patient has good rotational mot ion of the lumbar spine, both laterally as well as extension and flexion without significant difficulty. No tenderness over the spinous processes, sacrum or sacroiliac regions. EXTREMITIES: Lower extremities show deep tendon reflexes 2 in the patellar and tendo calcaneus tendons. Motor exam is 5 on a scale of 5 with right dorsiflexion, extension, quadriceps and hamstring flexion and 5/5 on the left. Peripheral pulses are 1+ posterior tibial. No peripheral edema is noted bilaterally. Lower extremities are warm and dry to touch, equal in color and appearance. Upper extremities show deep tendon reflexes 2+ in the bicep tricep tendons, motor exam is strong with livestock judging coach strength rated 5 out of 5 as is bicep and tricep flexion bilaterally. Peripheral pulses are 2+ radial no peripheral edema is noted. Shoulder shrug strong and intact without loss of strength on resistance bilaterally. SKIN: Shows warm and dry, good turgor. No edema. No sores, rashes or bruising throughout. Procedure: Procedure: Options were discussed with the patient. Patient's old chart was reviewed as her current medication regimen updated current review of systems updated today as well. We will proceed with a cervical epidural steroid injection today with fluoroscopic guidance. Risks were discussed including but not limited to: Bleeding, infection, possibility of epidural hematoma and subsequent neurological compromise, dural puncture, headaches, spinal cord and/or nerve damage, side effects of steroid medication, and poor results regarding pain control. Patient understands and wished to proceed. Patient will return to the clinic in approximate 2 weeks for follow-up, was counseled return appointment activity level and side effects to be aware of. Medication Injected: Med Injected: Procedure cervical epidural steroid injection at the C6-7 level, using local anesthetic under sterile prep and drape using C-arm fluoroscopic guidance under local anesthesia medications injected ;120 mg Depo-Medrol +5 mL normal saline and 2 mL contrast; condition at discharge is stable patient tolerated procedure well. and had no complications Condition at Discharge: Condition at Discharge: Condition at discharge stable, patient tolerated procedure well and had no complications. LINNETTE WILKERSON MD Sep 17, 2020 10:37
--- NOTE | 2020-09-17 10:38 | PDOC4 ---
PROCEDURE Procedure Patient is consented for cervical epidural steroid injection. Risks were di scussed including but not limited to: Bleeding, infection, possibility of epidural hematoma and subsequent neurological compromise, dural puncture, headaches, spinal cord and/or nerve damage, side effects of steroid medication, and poor results regarding pain control. Patient understands and wished to proceed. Procedure cervical epidural steroid injection at the C6-7 level, using local anesthetic under sterile prep and drape using C-arm fluoroscopic guidance under local anesthesia medications injected ;120 mg Depo-Medrol +5 mL normal saline and 2 mL contrast; condition at discharge is stable patient tolerated procedure well. and had no complications LINNETTE WILKERSON MD Sep 17, 2020 10:38
== END | disposition home or self-care (01) ==
LOC: PNCL 09:37
PROVIDERS: ATTEND Anesthesiology
DX: M50.10 Cervical disc disorder with radiculopathy, unspecified cervical region (principal); M51.14 Intervertebral disc disorders with radiculopathy, thoracic region; M51.16 Intervertebral disc disorders with radiculopathy, lumbar region; I10 Essential (primary) hypertension; Z90.710 Acquired absence of both cervix and uterus; Z98.890 Other specified postprocedural states; Z79.899 Other long term (current) drug therapy; Z87.891 Personal history of nicotine dependence; Z88.0 Allergy status to penicillin; Z88.8 Allergy status to other drugs, medicaments and biological substances
CPT/HCPCS: 62321; J1030; J1040; Q9965